=== PATIENT | male | born 1985 | race Caucasian/White ===

== ENCOUNTER 2017-11-14 22:46 | Emergency (ER) | payer OTHER ==
[2017-11-14 23:38] VITALS: BP 155/88
== END 2017-11-15 00:56 | disposition home or self-care (01) ==
LOC: ED 22:46
DX: S93.491A Sprain of other ligament of right ankle, initial encounter (principal); W18.30XA Fall on same level, unspecified, initial encounter; Y93.01 Activity, walking, marching and hiking; Y99.8 Other external cause status; Y92.89 Other specified places as the place of occurrence of the external cause
CPT/HCPCS: J1885